=== PATIENT | male | born 1955 | race Caucasian/White ===

== ENCOUNTER 2017-04-01 22:52 | Emergency (ER) | payer BC, OTHER, SELFPAY | END 2017-04-02 01:14 | disposition home or self-care (01) | PROVIDERS: Emergency Provider Emergency Medicine; Visit Provider Emergency Medicine | DX: N20.0 Calculus of kidney (principal); Z87.442 Personal history of urinary calculi; Z79.82 Long term (current) use of aspirin | CPT/HCPCS: 74176; 80053; 81001; 82150; 83690; 85025; 96361; 96365; 96375; 99284; J2405 ==

== ENCOUNTER → 2017-05-06 15:20 | Outpatient (REF) | payer BC, OTHER, SELFPAY ==
[2017-05-06 19:22] LABS: Prostate Specific Ag Screen 1.1 ng/mL (0.0-4.0)
== END ==
LOC: LAB 15:20
PROVIDERS: Visit Provider Urology
DX: R97.20 Elevated prostate specific antigen [PSA] (principal); Z12.5 Encounter for screening for malignant neoplasm of prostate
CPT/HCPCS: 36415; G0103

== ENCOUNTER → 2017-11-04 14:30 | Outpatient (CLI) | payer BC, SELFPAY ==
--- NOTE | 2017-11-04 14:35 | XR_ITS ---
XR KUB HISTORY: Abdominal pain ITS.REASON: KIDNEY STONES ORDERING PHYSICIAN: Mikal Ramos MD PATIENT AGE: 61 years COMPARISON: CT scan abdomen pelvis stone protocol 04/01/2017 FINDINGS: There is a rather gasless appearing abdomen. There is a tiny faint calculus overlying the upper pole left kidney. There is a small calcification lower right pelvis likely phleboliths. There are no calculi along the course of either ureter. There are surgical clips right upper quadrant. . IMPRESSION: Essentially nondiagnostic abdomen no suspicious ureteral calculi seen
[2017-11-04 16:14] LABS: Anion Gap 11.8 mEq/L (5-15); Blood Urea Nitrogen 9 mg/dL (7-18); Calcium 8.9 mg/dL (8.5-10.1); Carbon Dioxide 29 mmol/L (21.0-32.0); Chloride 108 mmol/L (98-107); Creatinine,Serum 0.92 mg/dL (0.70-1.30); Estimated Glomerular Filt Rate 84 ml/min (>60); GFR (African American) 102 ML/MIN (>60); Glucose 78 mg/dL (74-106); Potassium 4.8 mmoL/L (3.5-5.1); Sodium 144 mmol/L (136-145)
== END ==
PROVIDERS: PCP Family Medicine; Visit Provider Urology
DX: N20.0 Calculus of kidney (principal)
CPT/HCPCS: 36415; 74018; 80048

== ENCOUNTER → 2018-05-12 14:11 | Outpatient (CLI) | payer BC, SELFPAY ==
--- NOTE | 2018-05-12 14:16 | XR_ITS ---
XR KUB HISTORY: ITS.REASON: kidney stones ORDERING PHYSICIAN: Mikal Ramos MD PATIENT AGE: 62 years COMPARISON: 11/04/2017 FINDINGS: There are punctate bilateral renal calculi measuring up to 3 mm in the upper pole on the right and in the mid and lower pole on the left. No obvious ureteral calculi. Prior cholecystectomy. IMPRESSION: Bilateral nephrolithiasis
== END ==
PROVIDERS: PCP Family Medicine; Visit Provider Urology
DX: N20.0 Calculus of kidney (principal)
CPT/HCPCS: 74018

== ENCOUNTER 2021-01-29 15:29 | Emergency (ER) | payer OTHER, BC, SELFPAY ==
[2021-01-29 15:30] VITALS: BP 144/87; PULSE 109; RESP 18; TEMP 36.9; O2SAT 97; BMI 27.3
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
[2021-01-29 16:34] VITALS: BP 123/83; PULSE 96; RESP 20; TEMP 36.9; O2SAT 97
== END 2021-01-29 16:35 | disposition home or self-care (01) ==
PROVIDERS: Emergency Provider Emergency Medicine; PCP Family Medicine
DX: Z04.1 Encounter for examination and observation following transport accident (principal); M25.511 Pain in right shoulder; M25.512 Pain in left shoulder; V43.51XA Car driver injured in collision with sport utility vehicle in traffic accident, initial encounter; Y92.414 Local residential or business street as the place of occurrence of the external cause
CPT/HCPCS: 99281